=== PATIENT | female | born 1965 | race Caucasian/White ===

== ENCOUNTER 2024-07-13 13:14 | Inpatient (IN) | payer MEDICAID ==
[~2024-07-13] VITALS: Ht 154.9 cm; Wt 73.9 kg
[2024-07-13 13:59] LABS: BASOPHILS % 0.4 % (0.0-2.0); EOSINOPHILS % 0.1 % (0.0-5.0); HEMATOCRIT. 43.4 % (36.0-48.0); HEMOGLOBIN. 14.5 g/dL (12.0-16.0); LYMPHOCYTES % 10.7 % (20.0-50.0); MEAN CORPUSCULAR HEMOGLOBIN 28.6 pg (28.0-32.0); MEAN CORPUSCULAR HGB CONC 33.3 g/dL (31.0-37.0); MEAN CORPUSCULAR VOLUME 85.8 fL (81.0-99.0); MEAN PLATELET VOLUME 9.2 fl (7.4-10.4); MONOCYTES % 6.1 % (2.0-8.0); NEUTROPHILS % 82.7 % (40.0-76.0); PLATELET 221 x1000/uL (130-400); RED BLOOD CELL COUNT 5.06 mill/uL (4.2-5.4); RED CELL DISTRIBUTION WIDTH 14.1 % (11.6-14.6); WHITE BLOOD COUNT 12.2 x1000/uL (4.5-11.0)
[2024-07-13] MEDS: ACETAMINOPHEN 325MG TABLET PO ONE (14:02)
[2024-07-13 14:07] LABS: CHLORIDE 102 mEq/L (98-107); POTASSIUM 4.1 mEq/L (3.5-5.1); SODIUM 134 mEq/L (136-145)
[2024-07-13 14:08] LABS: CALCIUM 8.9 mg/dL (8.7-10.4); CARBON DIOXIDE 27 mEq/L (21-32)
[2024-07-13 14:13] LABS: GLUCOSE 105 mg/dL (70-105); UREA NITROGEN BLOOD 9 mg/dL (9-23)
[2024-07-13 14:14] LABS: TROPONIN I HIGH SENSITIVITY 4 ng/L (3.0-34)
[2024-07-13 14:15] LABS: ALANINE AMINOTRANSFERASE 40 IU/L (10-49); ALBUMIN 4.1 g/dL (3.2-4.8); ASPARTATE AMINOTRANSFERASE 28 IU/L (<34); BILIRUBIN TOTAL 0.4 mg/dL (0.1-1.0)
[2024-07-13 16:00] VITALS: BP 134/77; PULSE 97; RESP 20; TEMP 36.8; O2SAT 97
[2024-07-13 17:17] VITALS: BP 134/77; PULSE 97; RESP 20; TEMP 36.8
[2024-07-13 17:58] LABS: CHLORIDE 103 mEq/L (98-107); POTASSIUM 3.8 mEq/L (3.5-5.1); SODIUM 135 mEq/L (136-145)
[2024-07-13 17:59] LABS: CARBON DIOXIDE 24 mEq/L (21-32)
[2024-07-13 18:00] LABS: CALCIUM 8.9 mg/dL (8.7-10.4)
[2024-07-13 18:04] LABS: CREATININE 0.9 mg/dL (0.6-1.0); GLUCOSE 92 mg/dL (70-105)
[2024-07-13 18:05] LABS: UREA NITROGEN BLOOD 9 mg/dL (9-23)
[2024-07-13] MEDS: CEFTRIAXONE 1GM/50ML 50 ML IV SCH (18:10)
[2024-07-13 18:16] LABS: HEPATITIS B SURFACE ANTIGEN NEGATIVE (Negative)
[2024-07-13 18:37] LABS: HEPATITIS C AB NON REACTIVE (Neg) (Negative)
[2024-07-13] MEDS: AZITHROMYCIN 500MG/250ML 250 ML IV SCH (19:45)
[2024-07-13] MEDS: ACETAMINOPHEN 325MG TABLET PO PRN (19:55)
[2024-07-13 20:00] VITALS: BP 146/81; PULSE 92; RESP 18; TEMP 39.4; O2SAT 95
[2024-07-13] MEDS: IPRATROPIUM/ALBUTEROL 0.5-3(2.5)MG/3ML NEB HHN SCH (20:58)
[2024-07-13 20:59] VITALS: PULSE 95; RESP 20; O2SAT 93
[2024-07-13 22:41] VITALS: PULSE 94; RESP 24; O2SAT 94
[2024-07-14] VITALS (10 sets, daily range): BP systolic 108–132; BP diastolic 56–71; PULSE 82–94; RESP 14–20; TEMP 36.8–39.1; O2SAT 88–96
[2024-07-14] MEDS ORDERED: GUAIFENESIN-DM 200MG-20MG/10ML UDC PO PRN (10:45)
[2024-07-14 11:59] LABS: BASOPHILS % 0.5 % (0.0-2.0); HEMOGLOBIN. 14.4 g/dL (12.0-16.0); LYMPHOCYTES % 13.7 % (20.0-50.0); MEAN CORPUSCULAR HEMOGLOBIN 28.8 pg (28.0-32.0); MEAN CORPUSCULAR HGB CONC 33.4 g/dL (31.0-37.0); MEAN CORPUSCULAR VOLUME 86.2 fL (81.0-99.0); MEAN PLATELET VOLUME 10.1 fl (7.4-10.4); MONOCYTES % 9.6 % (2.0-8.0); NEUTROPHILS % 76.2 % (40.0-76.0); PLATELET 211 x1000/uL (130-400); RED BLOOD CELL COUNT 4.99 mill/uL (4.2-5.4); RED CELL DISTRIBUTION WIDTH 14.2 % (11.6-14.6); WHITE BLOOD COUNT 14.2 x1000/uL (4.5-11.0)
[2024-07-14 12:24] LABS: RESPIRATORY SYNCYTIAL VIRUS Not Detected (Not Detectd)
[2024-07-14 12:25] LABS: INFLUENZA TYPE A Presumptive Negative (Pres. Neg.); INFLUENZA TYPE B Presumptive Negative (Pres. Neg.)
[2024-07-14 13:37] LABS: CLARITY URINE CLEAR (CLEAR); COLOR URINE YELLOW (YELLOW); GLUCOSE URINE NEGATIVE (NEGATIVE); KETONES URINE NEGATIVE (NEGATIVE); LEUKOCYTE ESTERASE URINE NEGATIVE (NEGATIVE); NITRITE URINE NEGATIVE (NEGATIVE); OCCULT BLOOD URINE 1+ (NEGATIVE); PH URINE 5.5 (4.5-8.0); PROTEIN URINE 1+ (NEGATIVE); SPECIFIC GRAVITY URINE 1.026 (1.005-1.030); UROBILINOGEN URINE 0.2 E.U./dL (0.2-1.0)
[2024-07-14 14:03] LABS: MUCUS URINE 1+ /lpf (< = 2+)
[2024-07-14 14:04] LABS: SQUAMOUS EPITHELIAL CELL URINE 2+ /lpf (RARE/1+)
[2024-07-14 14:06] LABS: BACTERIA URINE TRACE; RBC URINE 0-2 /hpf (0-2)
[2024-07-14 14:13] LABS: WBC URINE 0-2 /hpf (0-2)
[2024-07-14] MEDS: GUAIFENESIN 600MG ER TABLET PO SCH (20:31)
[2024-07-15] VITALS: BP 127/80; PULSE 83; RESP 20; TEMP 35.9; O2SAT 91
[2024-07-15 04:00] VITALS: BP 117/69; PULSE 81; RESP 19; TEMP 36.7; O2SAT 93
[2024-07-15 08:00] VITALS: BP 112/62; PULSE 86; RESP 19; TEMP 36.4; O2SAT 97
[2024-07-15 12:00] VITALS: BP 100/63; PULSE 80; RESP 19; TEMP 36.5; O2SAT 98
[2024-07-15] MEDS ORDERED: ALBU18HF2 IH (12:05)
[2024-07-15] MEDS ORDERED: LEVO750T68 MT (12:05)
[2024-07-15] MEDS: PNEUMOCOCCAL 20-VAL CONJ-DIP CRM 0.5ML IM ONE (12:09)
[2024-07-15 12:15] VITALS: BP 112/62; PULSE 86; TEMP 97.5; O2SAT 97
== END 2024-07-15 16:50 | disposition home or self-care (01) | DRG 720 ==
LOC: ER 13:14 → 8WST 14:39
PROVIDERS: ADMIT Internal Medicine; ATTEND Internal Medicine
DX: A41.89 Other specified sepsis (principal); J18.9 Pneumonia, unspecified organism; I10 Essential (primary) hypertension; N39.3 Stress incontinence (female) (male); N39.498 Other specified urinary incontinence; J44.0 Chronic obstructive pulmonary disease with (acute) lower respiratory infection; Z87.891 Personal history of nicotine dependence; Z79.899 Other long term (current) drug therapy
CPT/HCPCS: 36415; 71045; 80048; 80053; 81003; 83605; 84145; 84484; 85025; 85379; 86705; 87340; 87420; 87804; 94070; 94640; 94664; 94760; 99285; J0456; J0696